=== PATIENT | male | born 1950 | race Caucasian/White ===

== ENCOUNTER → 2018-06-16 | Outpatient (CLI) | payer MEDICARE, OTHER ==
[2018-06-16] MEDS: SOD CHLORIDE 0.9% 100 ML (11:17)
[2018-06-16] MEDS: IOHEXOL 100 ML (11:18)
[2018-06-16] MEDS: METOPROLOL 5 MG INJ (11:30)
[2018-06-16] MEDS: NITROGLYCERIN AEROSOL (4.9 GM) (11:31)
== END | disposition home or self-care (01) ==
LOC: C/S 09:37
DX: R94.39 Abnormal result of other cardiovascular function study (principal); R07.9 Chest pain, unspecified
CPT/HCPCS: 75571; 75574